=== PATIENT | female | born 1950 | race Caucasian/White ===

== ENCOUNTER 2017-06-15 20:48 | Inpatient (IN) ==
[2017-06-15] MEDS ORDERED: ASPIRIN 325 MG TABLET PO STA (21:07)
[2017-06-15] MEDS ORDERED: HYDROmorphone 2 MG/1 ML VIAL IV STA (21:07)
[2017-06-15] MEDS ORDERED: ENOXAPARIN 80 MG/0.8 ML SYRINGE SUBCUT STA (21:07)
[2017-06-15] MEDS ORDERED: ONDANSETRON 4 MG/2 ML VIAL IV STA (21:07)
[2017-06-15] MEDS ORDERED: diphenhydrAMINE 50 MG/1 ML VIAL IV STA (21:08)
[2017-06-15] MEDS ORDERED: ENOXAPARIN 80 MG/0.8 ML SYRINGE SUBCUT ONE (21:13)
[2017-06-15] MEDS ORDERED: ONDANSETRON 4 MG/2 ML VIAL ONE (21:13)
[2017-06-15] MEDS ORDERED: ASPIRIN 325 MG TABLET ONE (21:13)
[2017-06-15] MEDS ORDERED: HYDROmorphone 2 MG/1 ML VIAL ONE (21:13)
[2017-06-15 21:14] LABS: Basophils % 0.3 % (0.0-0.8); Hematocrit 35.1 VOL% (35.7-47.0); Hemoglobin 12.2 GM/DL (12.0-16.0); Immature Granulocytes % 0.3 %; Immature Granulocytes Absolute 0.02 #; Lymphocytes # 2.2 10*3/uL (1.4-4.0); Lymphocytes % 28.6 % (21.3-54.2); Mean Corpuscular HGB Conc 34.8 GM/DL (32-36); Mean Corpuscular Hemoglobin 32 PG (27-34); Mean Corpuscular Volume 92.9 FL (87-102); Mean Platelet Volume 9.8 FL (9.6-12.0); Monocytes # 0.4 10*3/uL (0.11-0.8); Monocytes % 5.6 % (1.7-12.7); Neutrophils % 65.2 % (38.7-73.9); Platelet Count 239 T/CUMM (130-400); Red Blood Count 3.78 MC/CUMM (3.8-5.5); Red Cell Distribution Width 12.7 % (9.3-17.3); White Blood Count 7.7 T/CUMM (4-12)
[2017-06-15] MEDS ORDERED: diphenhydrAMINE 50 MG/1 ML VIAL ONE (21:14)
[2017-06-15] MEDS ORDERED: ALUM/MAG/SIMETH/LIDO VISC 1:1 30 ML BOTTLE PO STA (21:17)
[2017-06-15] MEDS ORDERED: NITROGLYCERIN 2% OINT 1 INCH/GM PACK TOP STA (21:20)
[2017-06-15] MEDS ORDERED: NITROGLYCERIN 2% OINT 1 INCH/GM PACK TOP ONE (21:25)
[2017-06-15] MEDS ORDERED: ALUM/MAG/SIMETH/LIDO VISC 1:1 30 ML BOTTLE PO ONE (21:25)
[2017-06-15] MEDS ORDERED: ALBUTEROL/IPRATROPIUM 3 ML NEB RESP TX STA (21:47)
[2017-06-15 21:49] LABS: Blood Urea Nitrogen 16 MG/DL (7-18); Calcium 8.6 MG/DL (8.5-10.1); Glucose 173 MG/DL (74-106); Magnesium 2.4 MG/DL (1.8-2.4); Potassium 3.1 MMOL/L (3.5-5.1); Sodium 136 MMOL/L (136-145)
[2017-06-15 21:50] LABS: Troponin I Only 0.509 NG/ML (0.00-0.045)
--- NOTE | 2017-06-15 22:07 | Emergency Department Note ---
Kolby Vásquez Brittany, am scribing for, and in the presence of, Luis Land MD 21 :14. Emery Vásquez Hans, MD, personally performed the services described in this documentation, ascribed by Jazzmine Jarrett in my presence, and it is both accurate and complete . 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 Patient states the pain radiates to her left arm and she has been weak for the past week. Patient has been being treated for sinusitis by her PCP and has been having a lot of cough and congestion. Patient was scheduled to see Dr Abel in the morning for cardiac work up but has to cancel her appt due to not feeling well. EKG being obtained upon arrival to ED. Mode of Arrival: Stretcher Limitations: No Limitations Source: Patient, RN Notes Reviewed Time Seen by Provider: 06/15/17 21:00 - History of Present Illness HPI Narrative: Patient is a 67 y/o white female presenting to the ED via EMS with c/o severe left-sided chest pain that began about an hour ago. Patient describes this pain as a crushing pressure beginning in the left-side of the chest, radiating into the left arm and shoulder. Patient denies having any associated shortness of breath, nausea, vomiting, or diaphoresis. Patient notes that she recently has been under the weather secondary to Sinusitis and Bronchitis for which she received a penicillin injection and was started on a Z-pack. She reports that she took her final dose of the Z-pack yesterday. She states that she has been having an excessive amount of coughing spells. at the bedside reports that patient has an appointment scheduled with Dr. Abel of Cardiology for routine check-up next week. states that patient has a history of going into SVTs in April of 2014. Patient had a Cardiac Catheterization [place] [address] Patrick after experiencing chest pains and palpitations, this showed no blockages. No further complaints. Date of Last Menstrual Period: HYST Allergies/Adverse Reactions: Allergies Allergy/AdvReac Type Severity Reaction Status Date / Time acetaminophen Allergy Unknown/Unable Verified 06/15/17 21:10 [From Tylenol-Codeine] to obtain adhesive Allergy Unknown/Unable Verified 06/15/17 21:10 to obtain codeine Allergy Unknown/Unable Verified 06/15/17 21:10 to obtain guaifenesin Allergy Unknown/Unable Verified 06/15/17 21:10 to obtain Hydromorphone [From Dilaudid] Allergy Unknown/Unable Verified 06/15/17 21:10 to obtain methylprednisolone Allergy Unknown/Unable Verified 06/15/17 21:10 to obtain morphine Allergy Unknown/Unable Verified 06/15/17 21:10 to obtain ondansetron Allergy Unknown/Unable Verified 06/15/17 21:10 [From Zofran (as to obtain hydrochloride)] tramadol [From Ultram] Allergy Unknown/Unable Verified 06/15/17 21:10 to obtain Review of System - Review of System 12 point system: reviewed and no additional remarkable complaints except as stated - Review of System Constitutional: Absent: chills, diaphoresis, fever Eyes: Absent: vision change Head/Ears/Nose/Throat: Absent: nasal drainage, sore throat Respiratory: Absent: respiratory distress Cardiovascular: Present: chest pain Gastrointestinal: Absent: abdominal pain, nausea, vomiting, diarrhea, constipation Genitourinary female: Absent: dysuria, frequency, urgency Musculoskeletal: Present: arm pain (left), other (left shoulder). Absent: back pain, leg pain, neck pain Skin: Absent: rash Neurological: Absent: headache Psychiatric: Absent: anxiety, depression Hematological/Lymphatic: Absent: easy bleeding, easy bruising Medical,Surgical,& Family Hx - Medical History Cardio: History of: Cardiac Dysrhythmia (SVT 04/2014) - Surgical History Cardiac Surgeries: Sugical HX of: Cardiac Catheterization (11/2014- clean) Reproductive Surgeries: Surgical HX of;: Hysterectomy - Social History Smoking Status: Never smoker Frequency of Alcohol Use: None Type of Drug Use: None Exam Vital Signs: Vital Signs Temperature 98.6 F 06/15/17 20:48 Pulse Rate 79 06/15/17 20:48 Respiratory Rate 17 06/15/17 20:48 Blood Pressure 139/70 06/15/17 20:48 O2 Sat by Pulse Oximetry 97 06/15/17 20:48 - General General appearance: alert, in distress (appears uncomfortable secondary to pain) - Head Head exam: Present: atraumatic, normocephalic, normal inspection - Eye Eye exam: Present: PERRL, EOMI - ENT ENT exam: Present: normal exam, normal oropharynx - Neck Neck exam: Present: normal inspection, full ROM, trachea midline - Chest Chest inspection: Present: normal inspection, symmetric chest wall rise. Absent : tenderness - Respiratory Respiratory exam: Present: normal lung sounds bilaterally - Cardiovascular Cardiovascular exam: Present: regular rate, normal rhythm, normal heart sounds - Abdominal Exam Abdominal exam: Present: soft, normal bowel sounds. Absent: tenderness - Extremities Exam Extremities exam: Present: normal inspection - Back Exam Back exam: Present: normal inspection - Neurological Exam Neurological exam: Present: alert, oriented X3, CN II-XII intact. Absent: motor sensory deficit - Psychiatric Psychiatric exam: Present: normal affect, normal mood - Skin Skin exam: Present: warm, dry Course Course Narrative: The patient was evaluated with ECG and labwork. She had a left bundle branch block and despite extensive searching in the medical record we were unable to find an old ECG for comparison or a diagnosis. She was treated for her chest pain with lovenox 80mg subQ, ASA, dilaudid, and zofran. She had no diaphoresis or nausea. I discussed her left bundle branch block with Dr. Carrillo who came and evaluated the patient. She will be admitted for cardiac catheterization in the AM. Results - Labs CBC & BMP: 06/15/17 21:08 06/15/17 21:08 Lab Results: I have reviewed the patients labs Labs: Laboratory Tests 06/15/17 21:08 Sodium 136 Potassium 3.1 L Chloride 102 Carbon Dioxide 24 BUN 16 Creatinine 0.80 Glucose 173 H Total Creatine Kinase 101 CK-MB (CK-2) 2.7 Troponin I 0.509 H Disposition Clinical Impression: Chest pain Case discussed with: patient, patient's family Disposition: Still a Patient Condition: Stable Instructions: Chest Pain (ED) Time of Disposition: 22:07
[2017-06-15] MEDS ORDERED: ACETAMINOPHEN 325 MG TABLET PO PRN (22:08)
[2017-06-15] MEDS ORDERED: MAGNESIUM SULF RIDER 4 GM in PREMIX 1 EACH IV PRN (22:08)
[2017-06-15] MEDS ORDERED: MAGNESIUM SULF RIDER 2 GM in PREMIX 1 EACH IV PRN (22:08)
[2017-06-15] MEDS ORDERED: POTASSIUM CHLORIDE RIDER 10 MEQ in PREMIX 1 EACH IV PRN (22:08)
[2017-06-15] MEDS ORDERED: NITROGLYCERIN SL 0.4 MG TABLET SL PRN (22:25)
--- NOTE | 2017-06-15 22:27 | History and Physical Update ---
Sedation H&P Update - History and Physical H&P was reviewed, the patient examined and there: are no changes in the patients condition since last H&P was completed. - Dictation Physical: refer to H&P completed by admitting physician - Physical Exam Mental Status: alert and oriented Heart: regular rate and rhythm Lung: clear to auscultation Abdomen: within normal limits Vitals: within normal limits - Sedation Plan for Sedation: minimal Patient Consent: Procedure disscussed with patient and patinet has consented., Risks and benefits were discussed with patient,including infection,, bleeding, injury to surrounding structures, seizure, temporary nerve, Patient understands and accepts potential risks/benefits and agrees to, proceed. ASA Class: II Airway Assessment: Class II: Soft palate, uvula, fauces visible
--- NOTE | 2017-06-15 22:30 | Cardiology History & Physical ---
Assessment and Plan - Time spent with patient Time spent with patient: Greater than 30 minutes (1) Progressive angina Status: Acute Assessment and plan: Her exertional chest pain sounds like angina. It goes away with rest. Goes to her left arm she is worried she may have significant CAD Plan/recommendations: Admit to monitored bed Serial enzymes Initial troponin is ramirez zone Lovenox Aspirin Nitropaste Beta-christian Left heart cath and possible PTCA or stent. Left heart cath and possible PTCA or stent were discussed with the patient. The risk of the procedure include but are not limited to a small risk of injury to the vessel, abnormal heart rhythm, stroke, heart attack, need for emergent surgery, contrast reaction, restenosis, infection, or . The patient voices understanding, agrees with the plan, and desires to proceed with the heart catheterization. Treat for GI cause Treat for muscle skeletal cause Treat for CAD Check lipid profile Replete potassium GI cocktail Current Visit: Yes (2) Chest pain in adult Status: Acute Current Visit: Yes (3) Anxiety Status: Acute Current Visit: Yes (4) GERD (gastroesophageal reflux disease) Status: Acute Current Visit: Yes (5) Exertional chest pain Status: Acute Current Visit: Yes (6) Bronchitis Status: Acute Current Visit: Yes History of Present Illness Chief complaint: ' i am Having more chest pain" History of present illness: Ms. Duque is a 67 year old female PCP: Dr. 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 Tk Abel, she is changing from Dr. Niles Patrick 67-year-old woman. She is having some chest pain was related bronchitis recently. However, she also relates chest pain within the last few months that comes on with exertion. He goes away with rest. It is new. It is a burning and tightness in her left chest on her left arm. He goes away with rest. And last a few minutes. Is been worrying her. She is anxious with it. Currently she has orthopnea and PND. No edema, palpitations, syncope She does have some cough wheezing and phlegm. Past medical history: SVT Cath in 2014 which showed no critical disease Generalized anxiety disorder GE reflux disease-is on Nexium Recent bronchitis- Multiple allergies Sinusitis Home Medications Medication Instructions Recorded Confirmed Type Estrogens(Conj) Tab [Premarin Tab] 0.9 mg PO DAILY 06/15/17 06/15/17 History Rizatriptan Benzoate [Maxalt] 10 mg PO PRN 06/15/17 History Allergies Allergy/AdvReac Type Severity Reaction Status Date / Time acetaminophen Allergy Unknown/Unable Verified 06/15/17 21:10 [From Tylenol-Codeine] to obtain adhesive Allergy Unknown/Unable Verified 06/15/17 21:10 to obtain codeine Allergy Unknown/Unable Verified 06/15/17 21:10 to obtain guaifenesin Allergy Unknown/Unable Verified 06/15/17 21:10 to obtain Hydromorphone [From Dilaudid] Allergy Unknown/Unable Verified 06/15/17 21:10 to obtain methylprednisolone Allergy Unknown/Unable Verified 06/15/17 21:10 to obtain morphine Allergy Unknown/Unable Verified 06/15/17 21:10 to obtain ondansetron Allergy Unknown/Unable Verified 06/15/17 21:10 [From Zofran (as to obtain hydrochloride)] tramadol [From Ultram] Allergy Unknown/Unable Verified 06/15/17 21:10 to obtain 12 point system: reviewed and no additional remarkable complaints except as stated (Review of systems is negative except for as mentioned in HPI.) Medical,Surgical,& Family Hx - Medical History Cardio: History of: Cardiac Dysrhythmia (SVT 04/2014) - Surgical History Cardiac Surgeries: Sugical HX of: Cardiac Catheterization (11/2014- clean) Reproductive Surgeries: Surgical HX of;: Hysterectomy - Social History Smoking Status: Never smoker Frequency of Alcohol Use: None Type of Drug Use: None Marital Status: Lives With:: Spouse Functional capacity: independent ambulation Cardiology Physical Exam - Constitutional Vitals: Vital Signs Temp Pulse Resp BP Pulse Ox 98.6 F 84 16 139/70 100 06/15/17 20:48 06/15/17 22:07 06/15/17 22:07 06/15/17 20:48 06/15/17 22:07 Intake and Output 06/15/17 06/15/17 06/15/17 07:59 15:59 23:59 Other: Weight 74.843 kg Patient Weight 06/15/17 23:59 Weight 74.843 kg Exam: HEENT: Pupils equal, reactive to light and accommodation Neck: NoJVD or bruit Lungs clear to auscultation Heart: Regular rhythm rate with normal S1 and S2. Apical S4 Abdomen: No hepatosplenomegaly Spine/extremities: No clubbing, cyanosis, or edema Neuro: Nonfocal Psych: No depression ; 3+ anxiety Femoral pulses are 4+. Foot pulses are 2-3+. No chest pain with pressing on her chest Has a flat affect Result/EKG - Labs CBC & BMP: 06/15/17 21:08 06/15/17 21:08 Lab Results: I have reviewed the past 24 hour labs Labs: Laboratory Results - last 24 hr 06/15/17 06/15/17 21:08 21:08 WBC 7.7 RBC 3.78 L Hgb 12.2 Hct 35.1 L MCV 92.9 MCH 32 MCHC 34.8 RDW 12.7 Plt Count 239 MPV 9.8 Neut % (Auto) 65.2 Lymph % (Auto) 28.6 [place] % (Auto) 5.6 Eos % (Auto) 0.0 Baso % (Auto) 0.3 Neut # (Auto) 5.0 Lymph # (Auto) 2.2 [place] # (Auto) 0.4 Eos # (Auto) 0.0 Baso # (Auto) 0.0 Immature Gran % 0.3 Nucleated RBC % 0.0 Immature Gran # 0.02 Nucleated RBCs # 0.00 Immature Plt Fraction 0.0 Sodium 136 Potassium 3.1 L Chloride 102 Carbon Dioxide 24 Anion Gap 13.1 BUN 16 Creatinine 0.80 GFR Calculation 77 BUN/Creatinine Ratio 20.00 Glucose 173 H Calculated Osmolality 276.0 Calcium 8.6 Magnesium 2.4 Total Creatine Kinase 101 CK-MB (CK-2) 2.7 Troponin I 0.509 H - Diagnostic Findings Procedure: Chest x-ray: report reviewed by me - EKG EKG results: interpreted by me Quality Measures - VTE Contraindication to Pharmacological VTE Prophylaxis: Already on Theraputic Agent , No Prophylaxis Needed
[2017-06-15] MEDS ORDERED: POTASSIUM CHLORIDE 20 MEQ PACK PO ONE (23:00)
[2017-06-15] MEDS: GABAPENTIN 100 MG CAPSULE PO SCH (23:50)
[2017-06-15] MEDS: PANTOPRAZOLE 40 MG TABLET PO SCH (23:50)
[2017-06-15] MEDS: CARVEDILOL 3.125 MG TABLET PO SCH (23:50)
[2017-06-15] MEDS: SERTRALINE 25 MG TABLET PO SCH (23:51)
[2017-06-15] MEDS: NITROGLYCERIN 2% OINT 1 INCH/GM PACK TOP SCH (23:51)
[2017-06-15] MEDS: clonazePAM 0.5 MG TABLET PO SCH (23:51)
[2017-06-15] MEDS: SODIUM CHLORIDE 0.9% 1,000 ML IV SCH (23:51)
[2017-06-16 00:10] LABS: Troponin I Only 1.41 NG/ML (0.00-0.045)
[2017-06-16] MEDS: ALBUTEROL/IPRATROPIUM 3 ML NEB RESP TX SCH ×5 (00:18→20:40)
[2017-06-16] MEDS ORDERED: HYDROmorphone 2 MG/1 ML VIAL IV PRN (00:19)
[2017-06-16] MEDS: hydrOXYzine HCL 25 MG TABLET PO PRN ×2 (00:52→13:20)
[2017-06-16] MEDS: NITROGLYCERIN 2% OINT 1 INCH/GM PACK TOP SCH ×3 (05:45→22:11)
[2017-06-16] MEDS ORDERED: diphenhydrAMINE CAP 25 MG CAPSULE PO ONE (06:00)
[2017-06-16] MEDS ORDERED: DIAZEPAM 5 MG TABLET PO ONE (06:00)
[2017-06-16 06:31] LABS: Calcium 8.1 MG/DL (8.5-10.1); Osmolality,Calculated 275.7 MOS/KG (273-304); Potassium 3.4 MMOL/L (3.5-5.1)
[2017-06-16 06:34] LABS: Risk Ratio 2.98; VLDL CHOLESTEROL 65.6 MG/DL
[2017-06-16 06:35] LABS: CKMB % 6.9 %
[2017-06-16 06:37] LABS: Troponin I Only 1.36 NG/ML (0.00-0.045)
[2017-06-16] MEDS: SODIUM CHLORIDE 0.9% 1,000 ML IV SCH ×2 (06:40→22:12)
--- NOTE | 2017-06-16 07:25 | Order Completion Report ---
See report scanned to EMR
--- NOTE | 2017-06-16 07:31 | XRay Report ---
Exam: XR chest 1V portable Indication: Chest pain Shortness of breath Comparison study: 05/01/2014 Findings: The heart, mediastinum and bony structures are stable from prior. There has been development of minimal perihilar interstitial prominence which may represent developing atelectasis/infiltrate/pulmonary edema. Mild elevation right hemidiaphragm is noted. Minimal basilar opacities are also new from prior. There is no pneumothorax. Impression: Development of minimal perihilar and basilar interstitial airspace opacities suspicious for pulmonary edema changes. Interstitial infectious/inflammatory infiltrates and basilar atelectasis are an alternate consideration. PROCEDURE INTERPRETED AT [facility] DEPARTMENT OF RADIOLOGY Final Report Signed by: Carlo Alvarado
[2017-06-16] MEDS: ASPIRIN CHEW 81 MG TABLET PO SCH (08:25)
[2017-06-16] MEDS: GABAPENTIN 100 MG CAPSULE PO SCH ×3 (08:25→22:10)
[2017-06-16] MEDS: CARVEDILOL 3.125 MG TABLET PO SCH ×2 (08:26→22:12)
[2017-06-16] MEDS: PANTOPRAZOLE 40 MG TABLET PO SCH ×3 (08:26→22:09)
[2017-06-16] MEDS ORDERED: LIDOCAINE 1% 20 ML VIAL ONE (09:03)
[2017-06-16] MEDS ORDERED: MIDAZOLAM 2 MG/2 ML VIAL ONE (09:04)
[2017-06-16] MEDS ORDERED: MEPERIDINE 25 MG/1 ML VIAL ONE ×2 (09:04→09:46)
--- NOTE | 2017-06-16 10:28 | Operative Note ---
Date of procedure: 06/16/17 Procedure Preformed: Left heart cath Coronary angiography Left ventriculography Angiogram of the right femoral artery--via the follow-through from the LV gram Angio-Seal of the right femoral artery-successful Surgeon / Physician: Trell Carrillo Leakage Tester: Taylor Dexter Post-op diagnosis: same (Progressive chest pain, left bundle-branch block, positive cardiac isoenzymes) Findings: Impression: No significant obstructive coronary disease-mild coronary disease 1 intramyocardial segment of the distal LAD, but does not appear to have significant bridging /narrowing with systole 20% ostial obtuse marginal and circumflex 30% narrowing of the takeoff of the PDA left circumflex Left dominant system Mild global left systolic dysfunction, LVEF 45-50%- Dyskinesis of the distal anterolateral and apical wall. Hypokinesis of the other segments, compensating for this finding--consider the possibility of broken heart syndrome/Takutsobu syndrome Moderate elevation of LVEDP, 26 mmHg Angiogram right femoral artery-via follow-through from the LV gram Angio-Seal of the right femoral artery-successful Plan/recommendations: Based on the study, the patient's chest pain does not appear to be due to fixed, obstructive coronary disease. Also she had severe, 15/10 chest pain during the procedure and has wide open arteries. It would go against her having spasm. My suspicion is that she could have had broken heart syndrome--although this may have been in the past and may or may not be related to this recent event. Although there is no history recent, a year and half ago there is a of her grandson which she is still grieving somewhat about. Also, may be just related to her bronchitis causing the enzyme rise. Lastly regarding her 15/10 chest pain during the cath, it may be esophageal related or muscle skeletal. I will give a trial of hyoscyamine 0.125 mg sublingual now and twice daily. Also, I will start Carafate. Last I will consult GI medicine and consult pulmonary medicine to help with her possible GI cause of her pain and with her bronchitis, respectively. The patient will have risk factors optimized. The patient will be on antiplatelet medications to include aspirin indefinitely. I will not start Plavix at this point because she may have an E scope may need a biopsy. Follow-up will be scheduled for Dr. Tk Abel, the physician/manager digital that she is changing to for her long-term cardiac care. She was set up to see him next week. I believe her sees him as his manager digital. Addenda: I saw the patient post-cath. the groin puncture site and distal pulse are stable. vital signs are stable and the patient will be observed closely overnight. Specimens: none sent Estimated blood loss: minimal Condition: stable Anesthesia: local, conscious sedation Disposition: floor
[2017-06-16] MEDS ORDERED: ALUM/MAG/SIMETH/LIDO VISC 1:1 30 ML BOTTLE PO ONE (11:33)
[2017-06-16 11:42] LABS: CKMB % 6.3 %
[2017-06-16 11:43] LABS: Troponin I Only 0.955 NG/ML (0.00-0.045)
--- NOTE | 2017-06-16 12:29 | Gastrointestinal Consult Note ---
Assessment and Plan (1) Chest pain Status: Acute Assessment and plan: 06/16-sudden onset of severe chest pain with radiation and diaphoresis on yesterday with cardiac workup including cardiac catheterization today without significant obstructive coronary disease found. No prior history of endoscopy or peptic ulcer disease. Daily NSAID use noted. We will plan upper endoscopy on Monday if patient remains inpatient otherwise patient can return next week as an outpatient for further workup with EGD. Plan an addendum to followed by Dr. Yoo. Current Visit: Yes History of Present Illness Chief complaint: Chest pain History of present illness: Ms. Duque is a 67 year old female who was admitted to the hospital on yesterday with sudden onset of severe left-sided chest pain. Patient states that she was in her usual state of health until yesterday afternoon when she had an onset of chest pain that radiated up into her left arm and shoulder. The pain was associated with diaphoresis however she denies any other symptoms. She does have a history of SVT however during this time felt uncertain as to if she was having an episode of this as well. Patient has a prior history of cardiac workup by Dr. Abel and was scheduled to see him next week for routine check. She also has had heart catheterization [place] [address] reynolds with no blockages seen at that time. Patient states that she began not feeling well last week with some sinus symptoms and went to an outpatient clinic. She was given a Z-Arjun and medication for cough and sent home. She states that she has been coughing quite a bit since this time however denies any fever. When patient began having chest pain last night, her called an ambulance and was transported to the hospital. On admission, patient was found to have elevated cardiac enzymes. She was taken to the Premium Note Interest Calculator Clerk this morning and underwent catheterization with no significant obstructive coronary disease seen. Patient states that she has never had upper endoscopy done in the past. She has no known prior history of ulcers. Her last colonoscopy was approximately a year ago at the endoscopic clinic with Dr. Yoo. She denies any recent weight loss, dysphagia however she does states she has had an increase in dyspepsia with belching and bloating at times as well as reflux which is not always controlled by her Prilosec. She denies any melena or hematochezia. States she has had a slight change in her bowel since taking antibiotics with loose stools. She does admit to taking 1 BC powder every day and occasionally she will take an Advil during the day. She denies any tobacco or alcohol use. Home Medications Medication Instructions Recorded Confirmed Type Estrogens(Conj) Tab [Premarin Tab] 0.9 mg PO DAILY 06/15/17 06/16/17 History Rizatriptan Benzoate [Maxalt] 10 mg PO Q2H PRN MDD 30mg/24hr 06/15/17 06/16/17 History Omeprazole [Omeprazole] 20 mg PO DAILY 06/16/17 06/16/17 History Triamterene/Hydrochlorothiazid 1 each PO DAILY 06/16/17 06/16/17 History [Triamterene-Hctz 37.5-25 mg Cp] Allergies Allergy/AdvReac Type Severity Reaction Status Date / Time acetaminophen Allergy Unknown/Unable Verified 06/15/17 21:10 [From Tylenol-Codeine] to obtain adhesive Allergy Unknown/Unable Verified 06/15/17 21:10 to obtain codeine Allergy Unknown/Unable Verified 06/15/17 21:10 to obtain guaifenesin Allergy Unknown/Unable Verified 06/15/17 21:10 to obtain Hydromorphone [From Dilaudid] Allergy Unknown/Unable Verified 06/15/17 21:10 to obtain methylprednisolone Allergy Unknown/Unable Verified 06/15/17 21:10 to obtain morphine Allergy Unknown/Unable Verified 06/15/17 21:10 to obtain ondansetron Allergy Unknown/Unable Verified 06/15/17 21:10 [From Zofran (as to obtain hydrochloride)] tramadol [From Ultram] Allergy Unknown/Unable Verified 06/15/17 21:10 to obtain Medical,Surgical,& Family Hx - Medical History Cardio: History of: Cardiac Dysrhythmia (SVT 04/2014) - Surgical History Cardiac Surgeries: Sugical HX of: Cardiac Catheterization (11/2014- clean) Reproductive Surgeries: Surgical HX of;: Hysterectomy - Social History Smoking Status: Never smoker Frequency of Alcohol Use: None Type of Drug Use: None 12 point system: reviewed and no additional remarkable complaints except as stated - Constitutional Constitutional: Present: as per HPI - EENT Eyes: Present: as per HPI Ears: Present: as per HPI Nose, mouth and throat: Present: as per HPI - Cardiovascular Cardiovascular: Present: as per HPI, chest pain at rest, diaphoresis - Respiratory Respiratory: Present: as per HPI, cough - Gastrointestinal Gastrointestinal: Present: as per HPI, diarrhea, dyspepsia, heartburn - Genitourinary Genitourinary: Present: as per HPI - Musculoskeletal Musculoskeletal: Present: as per HPI - Neurological Neurological: Present: as per HPI - Psychiatric Psychiatric: Present: as per HPI - Endocrine Endocrine: Present: as per HPI - Hematologic/Lymphatic Hematologic/Lymphatic: Present: as per HPI Exam - Constitutional Vitals: Period Temp Pulse Resp BP Sys/Landin Pulse Ox Last 24 Hr 96.9 F-98.6 F 72-98 12-22 109-156/62-73 93-100 General appearance: normal weight, no acute distress - Head Head exam: Present: normal inspection, normocephalic - Eye Eye exam: Present: other (Lids and conjunctivae are unremarkable). Absent: scleral icterus - ENT ENT exam: Present: normal exam, normal oropharynx - Neck Neck exam: Present: normal inspection - Respiratory Respiratory exam: Present: clear to auscultation bilaterally. Absent: rales, rhonchi, wheezes - Cardiovascular Cardiovascular exam: Present: regular rate and rhythm. Absent: diastolic murmur , JVD, systolic murmur - GI/Abdominal GI/Abdominal exam: Present: normal bowel sounds, soft. Absent: ascites, distended, hernia, mass, organomegaly, tenderness - Extremities Exam Extremities exam: Present: normal inspection, full ROM - Back Exam Back exam: Present: normal inspection - Neurological Exam Neurological exam: Present: alert, oriented X3 - Psychiatric Psychiatric exam: Present: normal affect, normal mood - Skin Skin exam: Present: normal color, warm, dry Results - Labs CBC & BMP: 06/15/17 21:08 06/16/17 05:26 Lab Results: I have reviewed the past 24 hour labs Quality Measures - VTE Contraindication to Pharmacological VTE Prophylaxis: High Risk of Bleeding Specialty Discharge - Follow Up or Referrals
--- NOTE | 2017-06-16 12:51 | Order Completion Report ---
See report scanned to EMR
--- NOTE | 2017-06-16 12:55 | Order Completion Report ---
See report scanned to EMR
[2017-06-16] MEDS: clonazePAM 0.5 MG TABLET PO SCH ×2 (13:24→22:09)
[2017-06-16] MEDS: CAPTOPRIL 6.25 MG TABLET PO SCH ×2 (17:07→22:10)
[2017-06-16] MEDS: HYOSCYAMINE 0.125 MG TABLET SL SCH ×2 (17:07→22:10)
[2017-06-16] MEDS: SUCRALFATE 1 GM/10 ML UDCUP PO SCH ×2 (17:09→22:09)
[2017-06-16] MEDS: ROSUVASTATIN 10 MG TABLET PO SCH (17:09)
[2017-06-16 17:29] LABS: CKMB % 7.5 %
[2017-06-16 17:31] LABS: Troponin I Only 0.872 NG/ML (0.00-0.045)
[2017-06-16] MEDS: SERTRALINE 25 MG TABLET PO SCH (22:09)
[2017-06-17] MEDS: ALBUTEROL/IPRATROPIUM 3 ML NEB RESP TX SCH ×5 (01:00→21:17)
[2017-06-17] MEDS: NITROGLYCERIN 2% OINT 1 INCH/GM PACK TOP SCH ×5 (02:10→21:35)
[2017-06-17 04:09] LABS: Basophils % 0.1 % (0.0-0.8); Hematocrit 32.8 VOL% (35.7-47.0); Hemoglobin 11.3 GM/DL (12.0-16.0); Immature Granulocytes % 0.2 %; Immature Granulocytes Absolute 0.02 #; Lymphocytes # 1.7 10*3/uL (1.4-4.0); Lymphocytes % 20.3 % (21.3-54.2); Mean Corpuscular HGB Conc 34.5 GM/DL (32-36); Mean Corpuscular Hemoglobin 32 PG (27-34); Mean Corpuscular Volume 92.9 FL (87-102); Mean Platelet Volume 10.5 FL (9.6-12.0); Monocytes # 0.3 10*3/uL (0.11-0.8); Neutrophils # 6.2 10*3/uL (1.4-7.4); Neutrophils % 75.4 % (38.7-73.9); Platelet Count 207 T/CUMM (130-400); Red Blood Count 3.53 MC/CUMM (3.8-5.5); White Blood Count 8.3 T/CUMM (4-12)
[2017-06-17 04:40] LABS: Calcium 7.7 MG/DL (8.5-10.1); Magnesium 2.1 MG/DL (1.8-2.4); Osmolality,Calculated 269.1 MOS/KG (273-304); Potassium 3.4 MMOL/L (3.5-5.1)
[2017-06-17] MEDS: SUCRALFATE 1 GM/10 ML UDCUP PO SCH ×4 (07:27→21:34)
[2017-06-17] MEDS: ROSUVASTATIN 10 MG TABLET PO SCH (09:32)
[2017-06-17] MEDS: ASPIRIN CHEW 81 MG TABLET PO SCH (09:33)
[2017-06-17] MEDS: GABAPENTIN 100 MG CAPSULE PO SCH ×3 (09:34→21:34)
[2017-06-17] MEDS: HYOSCYAMINE 0.125 MG TABLET SL SCH ×2 (09:34→21:33)
[2017-06-17] MEDS: CAPTOPRIL 6.25 MG TABLET PO SCH (09:34)
[2017-06-17] MEDS: PANTOPRAZOLE 40 MG TABLET PO SCH ×2 (09:35→21:34)
[2017-06-17] MEDS: clonazePAM 0.5 MG TABLET PO SCH ×2 (09:43→21:33)
[2017-06-17] MEDS: CARVEDILOL 3.125 MG TABLET PO SCH ×2 (09:44→16:22)
--- NOTE | 2017-06-17 09:58 | Pulmonology Consult Note ---
History of Present Illness Chief complaint: Chest pain. Cough. GERD History of present illness: Ms. Duque is a 67 year old white female who was seen along with her . I been asked to see him pulmonary consultation because of chest pain and because of an abnormal chest x-ray and a cough with wheezing. Patient's primary care physician is Dr. Huang puente This patient denies solid dysphagia. She has significant gastroesophageal reflux. The refluxes up into her throat wakes her up at night and often she is choking coughing when this happens. She says she has had cough shortness of breath for a week or 2 she thinks it started in her sinuses. She hears herself wheeze and is a large airway wheeze. He cannot characterize her sputum. The patient complains of anterior chest pain she says it often radiates down to her right arm. She has had a negative cardiac catheterization but apical hypokinesis was noted and I am not sure exactly what this is secondary to. On chest exam she has mild pectus excavatum and she has clear-cut costochondritis. This is most prominent on the left second through sixth costochondral junctions. Also is present to a lesser degree on the right in a similar distribution. The patient is also experienced some dyspnea on exertion she says she has been trying to walk some this summer and a third loop in the driveway she has anterior chest pain that radiates down her left arm. I wonder if this is muscle spasm in the face of normal cardiac catheterization. However the patient did have elevation of her troponins at 1.410 and her MB band was minimally up. The remainder the review of systems is negative Allergies. Tylenol with codeine. Dilaudid. Guaifenesin. Morphine. Methylprednisolone which she says makes her stay up all night. Zofran. Ultram. Home medicines. Dyazide. Prilosec. Maxalt. Estrogen (Premarin 0.9 mg tablet) Hospital medicines. See below. Past history. High blood pressure. Lower extremity edema. Previous venous sclerosis surgery of the lower extremities. Gastroesophageal reflux disease. Supraventricular tachycardia followed by Dr. Frey per recurrent sinusitis. Recurrent bronchitis. Hysterectomy. History of anxiety Social history. Patient is . I have seen her in the past. She does not smoke. Family history. Does not seem to be contributory. Chest x-ray. 06/15/2017. My interpretation. Heart size is normal. Luminary arteries are top normal. There is benign calcifications in both hilar areas. Steinmann was normal. There is interstitial scarring at the bases of both lungs. There may be a superimposed infiltrate. This is definitely different than chest x-rays taken several years ago. Lab. H&H 11.3/32.8 with normal indices. White count is 8375 segs and 20 lymphs. Sodium is 135, potassium 3.4, creatinine is 0.5 and BUN is 11. Highest troponin was 1.41. CPK-MB was elevated at 7.6. Cardiac catheterization 06/16/2017. Mild global left systolic dysfunction with ejection fraction of 45-50% range. Dyskinesis of the distal anterior lateral and apical wall. Hypokinesis of other segments compensated for this finding. Consider the possibility of broken heart syndrome/Takutsobu syndrome. Moderate elevation of left ventricular end-diastolic pressures at 26 mmHg. There was no significant obstructive coronary artery disease. Physical exam. Psychiatric oriented 3. Tends to fixate minutia and parlay 1 question into several more. was present. Neurologic. Cranial nerves are intact. Long track motor function was intact. Sensory exam was not done. Gait appears to be normal. Pupils hours to sclera conjunctiva eyelids are normal. Face is symmetrical. Salivary glands feel normal. Nares lips and tongue are normal. Neck. Symmetrical with no meningismus. Thyroid was not palpated Lymphatics no submandibular cervical supraclavicular or epitrochlear adenopathy Chest. Slightly kyphotic with slight pectus excavatum. Fairly significant costochondritis on the left at the costochondral junctions 2 through 6. There is a similar but less severe distribution on the right. Patient has a significant tracheal and large airway wheeze with associated congestion. I did not hear peripheral wheezes but she may not have moved in left enough air to produce this. Heart. Regular. I do not hear murmur rub or gallop Breast deferred Abdomen. Edge of the liver feels normal bowel sounds are present nontender. Lower extremities show +1 over over 4 bilateral pedal and pretibial edema extends about 75 in the distance between the ankles and tibial plateau. This is chronic in her slight overlying skin discoloration changes. Venous. Neck and upper extremities are normal chronic venous stasis over the lower extremities Arterial. Carotid upstroke is normal. I do not hear a bruit. Upper extremity pulses palpable. Posterior tibial pulses are faintly palpable bilaterally. Skin of the face and hand show no cancerous infectious lesions. Lower extremities show chronic venous stasis. No other areas of skin were examined. Musculoskeletal. Age-appropriate loss normal curvature cervical thoracic and lumbar spine. Pectus excavatum. Costochondritis. The remainder the physical exam is noncontributory Impression. 1. Gastroesophageal reflux disease with nocturnal microaspiration exacerbating or producing pulmonary problems 2. Bronchitis with bronchospasm the large airways almost certainly exacerbated by nocturnal microaspiration 3. Bibasilar interstitial scarring which may be the result of nocturnal microaspiration of gastric contents. Suspicious there may be accompanying infiltrates. 4. Decreased cardiac output without coronary artery disease. She cardiac catheterization. 5. Mild anemia 6. Tendency towards anxiety 7. Chronic venous stasis of both lower extremities. History of sclerotic venous surgery. Look for deep venous thrombophlebitis 8. See past history Plan. 1. Solu-Medrol 40 IV push every 12 hours. I have discussed this with the patient and her . She understands this may keep her up at night. 2. Singulair 10 mg daily 3. Agree with inhalation therapy with DuoNeb's 4 times daily as needed 4 would like to use something to thin sputum. Patient lists guaifenesin as allergy. I did not question her about this. 5. We discussed antireflux regimen including a food diary, elevation of head of the bed. Smaller suppers and earlier suffers. 6. Doppler venograms of the lower extremities 7. Sputum for Gram stain culture and sensitivity 8. Meropenem 500 mg IV piggyback every 8 hours 9. EPA and lateral chest x-ray in the morning. 10. See orders Home Medications Medication Instructions Recorded Confirmed Type Estrogens(Conj) Tab [Premarin Tab] 0.9 mg PO DAILY 06/15/17 06/16/17 History Rizatriptan Benzoate [Maxalt] 10 mg PO Q2H PRN MDD 30mg/24hr 06/15/17 06/16/17 History Omeprazole [Omeprazole] 20 mg PO DAILY 06/16/17 06/16/17 History Triamterene/Hydrochlorothiazid 1 each PO DAILY 06/16/17 06/16/17 History [Triamterene-Hctz 37.5-25 mg Cp] Allergies Allergy/AdvReac Type Severity Reaction Status Date / Time acetaminophen Allergy Unknown/Unable Verified 06/15/17 21:10 [From Tylenol-Codeine] to obtain adhesive Allergy Unknown/Unable Verified 06/15/17 21:10 to obtain codeine Allergy Unknown/Unable Verified 06/15/17 21:10 to obtain guaifenesin Allergy Unknown/Unable Verified 06/15/17 21:10 to obtain Hydromorphone [From Dilaudid] Allergy Unknown/Unable Verified 06/15/17 21:10 to obtain methylprednisolone Allergy Unknown/Unable Verified 06/15/17 21:10 to obtain morphine Allergy Unknown/Unable Verified 06/15/17 21:10 to obtain ondansetron Allergy Unknown/Unable Verified 06/15/17 21:10 [From Zofran (as to obtain hydrochloride)] tramadol [From Ultram] Allergy Unknown/Unable Verified 06/15/17 21:10 to obtain Exam (Pulmonay) H&P - Constitutional Vitals: Period Temp Pulse Resp BP Sys/Landin Pulse Ox Last 24 Hr 97.0 F-98.1 F 79-99 16-22 101-117/54-70 91-971 Medical,Surgical,& Family Hx - Medical History Cardio: History of: Cardiac Dysrhythmia (SVT 04/2014) - Surgical History Cardiac Surgeries: Sugical HX of: Cardiac Catheterization (11/2014- clean) Reproductive Surgeries: Surgical HX of;: Hysterectomy - Social History Smoking Status: Never smoker Frequency of Alcohol Use: None Type of Drug Use: None Results - Labs CBC & BMP: 06/17/17 03:16 06/17/17 03:16 Quality Measures - VTE Contraindication to Pharmacological VTE Prophylaxis: High Risk of Bleeding Specialty Discharge - Follow Up or Referrals
[2017-06-17] MEDS: methylPREDNISolone SOD SUC 40 MG/1 ML VIAL IV SCH ×2 (11:38→21:34)
[2017-06-17] MEDS: MONTELUKAST 10 MG TABLET PO SCH (11:38)
[2017-06-17] MEDS: MEROPENEM 500 MG in SODIUM CHLORIDE 0.9% 50 ML IV SCH ×2 (11:39→18:37)
--- NOTE | 2017-06-17 11:54 | Ultrasound Report ---
History: Lower extremity edema Date: 06/17/2017 Study: Bilateral lower extremity color-flow venous Doppler study Comparison exam: July 23, 2013 Color Doppler, wave form analysis, and compression analysis of the deep veins of both lower extremities from the common femoral vein level through the popliteal vein level shows that the veins are readily compressible. There is no abnormal intraluminal material to suggest thrombus. Waveform analysis is unremarkable. Ultrasound images were captured and archived Impression: No evidence of acute DVT PROCEDURE INTERPRETED AT [facility] DEPARTMENT OF RADIOLOGY Final Report Signed by: Dr. Heide Yoo
--- NOTE | 2017-06-17 11:58 | Order Completion Report ---
See report scanned to EMR
[2017-06-17] MEDS ORDERED: POTASSIUM CHLORIDE 20 MEQ PACK PO ONE (18:32)
--- NOTE | 2017-06-17 18:37 | Cardiology Progress Note ---
Assessment and Plan (1) Progressive angina Status: Acute Assessment and plan: Her exertional chest pain sounds like angina. It goes away with rest. Goes to her left arm she is worried she may have significant CAD Plan/recommendations: Admit to monitored bed Serial enzymes Initial troponin is ramirez zone Lovenox Aspirin Nitropaste Beta-christian Left heart cath and possible PTCA or stent. Left heart cath and possible PTCA or stent were discussed with the patient. The risk of the procedure include but are not limited to a small risk of injury to the vessel, abnormal heart rhythm, stroke, heart attack, need for emergent surgery, contrast reaction, restenosis, infection, or . The patient voices understanding, agrees with the plan, and desires to proceed with the heart catheterization. Treat for GI cause Treat for muscle skeletal cause Treat for CAD Check lipid profile Replete potassium GI cocktail 06/17/17 Chest pain is better We will be for e scope on Monday Cough is being evaluated Thought to be microaspiration We will elevate head of bed Preoperative PPI Change Nghia to ARB because of cough Give some additional potassium Current Visit: Yes (2) Chest pain in adult Status: Acute Current Visit: Yes (3) Anxiety Status: Acute Current Visit: Yes (4) GERD (gastroesophageal reflux disease) Status: Acute Current Visit: Yes (5) Exertional chest pain Status: Acute Current Visit: Yes (6) Bronchitis Status: Acute Current Visit: Yes Cardiology - PN: Subj Interval history: Chest pain is much better Cough continues Monasalnicole Wilson have not helped her cough very much Exam (Progress Note) - Constitutional Vitals: Period Temp Pulse Resp BP Sys/Landin Pulse Ox Last 24 Hr 97.0 F-98.1 F 87-99 16-20 97-129/50-75 91-99 Exam: HEENT: Pupils equal, reactive to light and accommodation Neck: NoJVD or bruit Lungs clear to auscultation Heart: Regular rhythm rate with normal S1 and S2. Apical S4 Abdomen: No hepatosplenomegaly Spine/extremities: No clubbing, cyanosis, or edema Neuro: Nonfocal Psych: No depression or anxiety Result/EKG - Labs CBC & BMP: 06/17/17 03:16 06/17/17 03:16 Lab Results: I have reviewed the past 24 hour labs Labs: Laboratory Results - last 24 hr 06/17/17 06/17/17 03:16 03:16 WBC 8.3 RBC 3.53 L Hgb 11.3 L Hct 32.8 L MCV 92.9 MCH 32 MCHC 34.5 RDW 13.0 Plt Count 207 MPV 10.5 Neut % (Auto) 75.4 H Lymph % (Auto) 20.3 L R[place] % (Auto) 4.0 Eos % (Auto) 0.0 Baso % (Auto) 0.1 Neut # (Auto) 6.2 Lymph # (Auto) 1.7 [place]usk # (Auto) 0.3 Eos # (Auto) 0.0 Baso # (Auto) 0.0 Immature Gran % 0.2 Nucleated RBC % 0.0 Immature Gran # 0.02 Nucleated RBCs # 0.00 Immature Plt Fraction 0.0 Sodium 135 L Potassium 3.4 L Chloride 100 Carbon Dioxide 25 Anion Gap 13.4 BUN 11 Creatinine 0.50 L GFR Calculation 104 BUN/Creatinine Ratio 22.00 H Glucose 109 H Calculated Osmolality 269.1 L Calcium 7.7 L Magnesium 2.1 - Diagnostic Findings Procedure: Chest x-ray: report reviewed by me - EKG EKG results: interpreted by me Quality Measures - VTE Contraindication to Pharmacological VTE Prophylaxis: High Risk of Bleeding Specialty Discharge - Follow Up or Referrals
[2017-06-17] MEDS: SERTRALINE 25 MG TABLET PO SCH (21:34)
[2017-06-17] MEDS: CARVEDILOL 6.25 MG TABLET PO SCH (21:34)
[2017-06-17] MEDS: LOSARTAN 25 MG TABLET PO SCH (21:34)
[2017-06-18] MEDS: ZALEPLON 5 MG CAPSULE PO PRN ×2 (00:06→21:13)
[2017-06-18] MEDS: ALBUTEROL/IPRATROPIUM 3 ML NEB RESP TX SCH ×6 (01:40→23:00)
[2017-06-18] MEDS: MEROPENEM 500 MG in SODIUM CHLORIDE 0.9% 50 ML IV SCH ×3 (03:14→18:15)
[2017-06-18 04:09] LABS: ABG Base Excess 1.1 MMOL/L (-2.5-2.5); ABG HCO3 24.1 MMOL/L (20-26); ABG Oxygen Saturation 94.8 % (95-100); ABG PCO2 33.1 MM HG (35-48); ABG PO2 71.6 MM HG (80-95); ABG TCO2 25.1 MMOL/L (23-27); Allen Test Positive; Pt O2 Delivery Device Room Air
[2017-06-18] MEDS: NITROGLYCERIN 2% OINT 1 INCH/GM PACK TOP SCH ×4 (04:24→22:02)
[2017-06-18 04:50] LABS: Basophils % 0.1 % (0.0-0.8); Hematocrit 33.3 VOL% (35.7-47.0); Hemoglobin 11.5 GM/DL (12.0-16.0); Immature Granulocytes % 0.6 %; Immature Granulocytes Absolute 0.04 #; Lymphocytes # 0.7 10*3/uL (1.4-4.0); Lymphocytes % 9.8 % (21.3-54.2); Mean Corpuscular HGB Conc 34.5 GM/DL (32-36); Mean Corpuscular Hemoglobin 32 PG (27-34); Mean Platelet Volume 10.7 FL (9.6-12.0); Monocytes # 0.1 10*3/uL (0.11-0.8); Monocytes % 0.7 % (1.7-12.7); Neutrophils # 6.1 10*3/uL (1.4-7.4); Neutrophils % 88.8 % (38.7-73.9); Platelet Count 230 T/CUMM (130-400); Red Blood Count 3.58 MC/CUMM (3.8-5.5); Red Cell Distribution Width 13.2 % (9.3-17.3); White Blood Count 6.9 T/CUMM (4-12)
[2017-06-18 05:17] LABS: Calcium 8.4 MG/DL (8.5-10.1); Magnesium 2.5 MG/DL (1.8-2.4); Osmolality,Calculated 278.7 MOS/KG (273-304); Potassium 4.3 MMOL/L (3.5-5.1)
[2017-06-18] MEDS: SUCRALFATE 1 GM/10 ML UDCUP PO SCH ×4 (07:33→21:13)
[2017-06-18] MEDS: HYOSCYAMINE 0.125 MG TABLET SL SCH ×2 (09:46→21:13)
[2017-06-18] MEDS: LOSARTAN 25 MG TABLET PO SCH ×2 (09:46→21:13)
[2017-06-18] MEDS: ASPIRIN CHEW 81 MG TABLET PO SCH (09:46)
[2017-06-18] MEDS: CARVEDILOL 6.25 MG TABLET PO SCH ×2 (09:46→18:14)
[2017-06-18] MEDS: MONTELUKAST 10 MG TABLET PO SCH (09:48)
[2017-06-18] MEDS: ROSUVASTATIN 10 MG TABLET PO SCH (09:48)
[2017-06-18] MEDS: clonazePAM 0.5 MG TABLET PO SCH ×2 (09:51→21:13)
[2017-06-18] MEDS: PANTOPRAZOLE 40 MG TABLET PO SCH ×2 (09:53→21:14)
[2017-06-18] MEDS: GABAPENTIN 100 MG CAPSULE PO SCH ×3 (09:53→21:13)
[2017-06-18] MEDS: methylPREDNISolone SOD SUC 40 MG/1 ML VIAL IV SCH ×2 (10:51→21:57)
--- NOTE | 2017-06-18 11:25 | Order Completion Report ---
See report scanned to EMR
--- NOTE | 2017-06-18 12:02 | Pulmonology Progress Note ---
Pulmonary - PN: Subj Interval history: This is a 67-year-old white female whose is a patient of mine. I saw this patient in pulmonary consultation on 06/17/2017. My impressions were. 1. Gastroesophageal reflux disease with nocturnal microaspiration exacerbating or producing pulmonary problems 2. Bronchitis with bronchospasm the large airways almost certainly exacerbated by nocturnal microaspiration 3. Bibasilar interstitial scarring which may be the result of nocturnal microaspiration of gastric contents. Suspicious there may be accompanying infiltrates. 4. Decreased cardiac output without coronary artery disease. She cardiac catheterization. Positive troponins. 5. Mild anemia 6. Tendency towards anxiety 7. Chronic venous stasis of both lower extremities. History of sclerotic venous surgery. Look for deep venous thrombophlebitis 8. See past history 06/18/2017. Patient tolerated her medicines well but she has a lot of complaints including potassium preparation she was given last night. This causes gastroesophageal reflux along with that she had left arm pain. Today's chest x-ray is significantly better. Heart size is normal. Pulmonary arteries are top normal. There are benign calcifications of both hilar areas. The mediastinum is normal. There is some slight blunting both costophrenic angles. The interstitial markings at the posterior bases bilaterally are less prominent than I thought yesterday. Patient had bibasilar infiltrates on her most recent x-rays and these are all practical purposes resolved now. This was apparently pneumonia. There was probably bacterial superinfection. There may have been underlying changes related to nocturnal microaspiration. Previously noted tracheal large airway wheezes significantly better. ABGs on room air show pH of 7.48, PCO2 of 33.1, PO2 of 71.6 and a bicarb of 24.1. White blood cell count is 6988.8 segs. H&H 11.5/33.3. Electrolytes are normal. Creatinine is 0.6 with a BUN of 14. Patient for knee scope tomorrow morning. Physical exam. Vital signs. See below. Afebrile. Psychiatric oriented 3. Talker. Neurologic. Cranial nerves are intact long track motor functions intact gait is normal. Sensory exam was not done Face. Symmetrical. No edema of the lips or tongue Neck. No meningismus Chest. Nearly wheeze free. Previously had significant tracheal and large airway wheeze with prolonged expiration. Heart. No definite gallop Abdomen. Nontender. Positive bowel sounds Extremities. Trace of pedal and pretibial edema. Lymphatics. No submandibular cervical supraclavicular or epitrochlear adenopathy. The remainder the physical exam is negative Plan. 06/17/2017 1. Solu-Medrol 40 IV push every 12 hours. I have discussed this with the patient and her . She understands this may keep her up at night. 2. Singulair 10 mg daily 3. Agree with inhalation therapy with DuoNeb's 4 times daily as needed 4 would like to use something to thin sputum. Patient lists guaifenesin as allergy. I did not question her about this. 5. We discussed antireflux regimen including a food diary, elevation of head of the bed. Smaller suppers and earlier suffers. 6. Doppler venograms of the lower extremities 7. Sputum for Gram stain culture and sensitivity 8. Meropenem 500 mg IV piggyback every 8 hours 9. EPA and lateral chest x-ray in the morning. 10. See orders 06/18/2017 1. Continue present regimen. May have to taper low-dose steroids soon. 2. E scope. 3. Sputum for Gram stain culture and sensitivity pending 4. Cold agglutinins. Pro-calcitonin. Exam (Progress Note) - Constitutional Vitals: Period Temp Pulse Resp BP Sys/Landin Pulse Ox Last 24 Hr 97.8 F-98.6 F 67-106 15-20 105-155/60-77 94-99 Results - Labs CBC & BMP: 06/18/17 03:21 06/18/17 03:21 Specialty Discharge - Follow Up or Referrals
--- NOTE | 2017-06-18 12:05 | XRay Report ---
History: Chest pain. Abnormal chest x-ray. GERD Date: 06/18/2017 Study: Chest x-ray PA and lateral Comparison exam: June 15, 2017 The cardiac silhouette is not enlarged. There is no mediastinal mass. The pulmonary vasculature is not engorged. The bibasilar atelectasis/infiltrate on the previous study has nearly resolved. There is trace bilateral pleural effusion. There is no new or worsening process. Osseous structures are similar. Impression: Near complete resolution of the bibasilar atelectasis/infiltrate/edema since the previous study. Trace bilateral pleural effusion PROCEDURE INTERPRETED AT [facility] DEPARTMENT OF RADIOLOGY Final Report Signed by: Dr. Hiede Yoo
--- NOTE | 2017-06-18 14:55 | Cardiology Progress Note ---
Assessment and Plan (1) Progressive angina Status: Acute Assessment and plan: Her exertional chest pain sounds like angina. It goes away with rest. Goes to her left arm she is worried she may have significant CAD Plan/recommendations: Admit to monitored bed Serial enzymes Initial troponin is ramirez zone Lovenox Aspirin Nitropaste Beta-christian Left heart cath and possible PTCA or stent. Left heart cath and possible PTCA or stent were discussed with the patient. The risk of the procedure include but are not limited to a small risk of injury to the vessel, abnormal heart rhythm, stroke, heart attack, need for emergent surgery, contrast reaction, restenosis, infection, or . The patient voices understanding, agrees with the plan, and desires to proceed with the heart catheterization. Treat for GI cause Treat for muscle skeletal cause Treat for CAD Check lipid profile Replete potassium GI cocktail 06/17/17 Chest pain is better We will be for e scope on Monday Cough is being evaluated Thought to be microaspiration We will elevate head of bed Preoperative PPI Change Nghia to ARB because of cough Give some additional potassium 06/18/17 Still having some chest pain. It may be esophageal. We will be for E scope tomorrow May have esophageal spasm or esophageal stricture Patient has had a non-STEMI. The troponin is increased and decreased. Has a apical wall motion abnormality. I believe she has a broken heart syndrome, but it could be garden-variety spasm and thrombosis and resolution of the LAD She discussed that her son is manipulative, drug addict, and causes much stress and she and her 's life We will increase the sertraline to 50 mg nightly For her apical dyskinesis, she is on carvedilol and losartan. I discussed that that wall motion abnormality likely would improve over time. Dr. Tk Abel might want to recheck an echo in 4-6 months and see if it is improved I encouraged to sleep with her head of the bed elevated to lessen microaspiration of her reflux, which is probably causing her cough I discussed all this with the patient and with her . Current Visit: Yes (2) Chest pain in adult Status: Acute Current Visit: Yes (3) Anxiety Status: Acute Current Visit: Yes (4) GERD (gastroesophageal reflux disease) Problem details: Probably has microaspiration Status: Acute Current Visit: Yes (5) Exertional chest pain Status: Acute Current Visit: Yes (6) Bronchitis Status: Acute Current Visit: Yes (7) Non-STEMI (non-ST elevated myocardial infarction) Status: Acute Current Visit: Yes (8) Broken heart syndrome Status: Acute Current Visit: Yes Cardiology - PN: Subj Interval history: Mild chest pain last night. Continues to have a cough is significant. Exam (Progress Note) - Constitutional Vitals: Period Temp Pulse Resp BP Sys/Landin Pulse Ox Last 24 Hr 97.8 F-98.6 F 67-106 15-20 105-155/60-77 94-99 Exam: HEENT: Pupils equal, reactive to light and accommodation Neck: NoJVD or bruit Lungs clear to auscultation Heart: Regular rhythm rate with normal S1 and S2. Apical S4 Abdomen: No hepatosplenomegaly Spine/extremities: No clubbing, cyanosis, or edema Neuro: Nonfocal Psych: No depression or anxiety Result/EKG - Labs CBC & BMP: 06/18/17 03:21 06/18/17 03:21 Lab Results: I have reviewed the past 24 hour labs Labs: Laboratory Results - last 24 hr 06/18/17 06/18/17 06/18/17 03:21 03:21 04:00 WBC 6.9 RBC 3.58 L Hgb 11.5 L Hct 33.3 L MCV 93.0 MCH 32 MCHC 34.5 RDW 13.2 Plt Count 230 MPV 10.7 Neut % (Auto) 88.8 H Lymph % (Auto) 9.8 L [place] % (Auto) 0.7 L Eos % (Auto) 0.0 Baso % (Auto) 0.1 Neut # (Auto) 6.1 Lymph # (Auto) 0.7 L [place] # (Auto) 0.1 L Eos # (Auto) 0.0 Baso # (Auto) 0.0 Immature Gran % 0.6 Nucleated RBC % 0.0 Immature Gran # 0.04 Nucleated RBCs # 0.00 Immature Plt Fraction 0.0 ABG pH 7.480 H ABG pCO2 33.1 L ABG pO2 71.6 L ABG HCO3 24.1 ABG Total CO2 25.1 ABG O2 Saturation 94.8 L ABG Base Excess 1.1 FiO2 21.00 Sodium 138 Potassium 4.3 Chloride 105 Carbon Dioxide 24 Anion Gap 13.3 BUN 14 Creatinine 0.60 GFR Calculation 98 BUN/Creatinine Ratio 23.00 H Glucose 160 H Calculated Osmolality 278.7 Calcium 8.4 L Magnesium 2.5 H - EKG EKG results: interpreted by me Quality Measures - VTE Contraindication to Pharmacological VTE Prophylaxis: High Risk of Bleeding Specialty Discharge - Follow Up or Referrals
[2017-06-18] MEDS ORDERED: SERTRALINE 50 MG TABLET PO SCH (21:00)
[2017-06-19] MEDS: MEROPENEM 500 MG in SODIUM CHLORIDE 0.9% 50 ML IV SCH ×2 (03:15→10:31)
[2017-06-19 04:58] LABS: Basophils % 0.1 % (0.0-0.8); Hematocrit 31.9 VOL% (35.7-47.0); Hemoglobin 10.8 GM/DL (12.0-16.0); Immature Granulocytes % 0.7 %; Immature Granulocytes Absolute 0.05 #; Lymphocytes # 0.7 10*3/uL (1.4-4.0); Lymphocytes % 9.5 % (21.3-54.2); Mean Corpuscular HGB Conc 33.9 GM/DL (32-36); Mean Corpuscular Hemoglobin 32 PG (27-34); Mean Corpuscular Volume 94.9 FL (87-102); Mean Platelet Volume 10.8 FL (9.6-12.0); Monocytes # 0.1 10*3/uL (0.11-0.8); Monocytes % 1.4 % (1.7-12.7); Neutrophils # 6.4 10*3/uL (1.4-7.4); Neutrophils % 88.3 % (38.7-73.9); Platelet Count 240 T/CUMM (130-400); Red Blood Count 3.36 MC/CUMM (3.8-5.5); Red Cell Distribution Width 13.3 % (9.3-17.3); White Blood Count 7.3 T/CUMM (4-12)
[2017-06-19] MEDS: NITROGLYCERIN 2% OINT 1 INCH/GM PACK TOP SCH ×3 (05:18→18:01)
[2017-06-19 05:23] LABS: Calcium 8.3 MG/DL (8.5-10.1); Magnesium 2.7 MG/DL (1.8-2.4); Osmolality,Calculated 282.5 MOS/KG (273-304); Potassium 4.4 MMOL/L (3.5-5.1)
[2017-06-19] MEDS: ALBUTEROL/IPRATROPIUM 3 ML NEB RESP TX SCH ×3 (07:41→14:35)
[2017-06-19] MEDS ORDERED: PROPOFOL 200 MG/20 ML VIAL IV ONE (09:00)
[2017-06-19] MEDS ORDERED: LIDOCAINE 2% 5 ML VIAL ONE (09:00)
[2017-06-19] MEDS: GABAPENTIN 100 MG CAPSULE PO SCH ×2 (09:00→15:36)
[2017-06-19] MEDS: CARVEDILOL 6.25 MG TABLET PO SCH (09:39)
[2017-06-19] MEDS: PANTOPRAZOLE 40 MG TABLET PO SCH (09:39)
[2017-06-19] MEDS: LOSARTAN 25 MG TABLET PO SCH (09:39)
[2017-06-19] MEDS: clonazePAM 0.5 MG TABLET PO SCH (09:40)
[2017-06-19] MEDS: SUCRALFATE 1 GM/10 ML UDCUP PO SCH ×3 (09:41→15:35)
[2017-06-19] MEDS: methylPREDNISolone SOD SUC 40 MG/1 ML VIAL IV SCH (10:50)
--- NOTE | 2017-06-19 11:24 | Cardiology Progress Note ---
Assessment and Plan (1) Chest pain Status: Acute Assessment and plan: SEE PLAN OF CARE LISTED BELOW. Current Visit: Yes (2) Elevated troponin Status: Acute Assessment and plan: SEE PLAN OF CARE LISTED BELOW. Current Visit: Yes (3) Nonischemic cardiomyopathy Status: Acute Assessment and plan: SEE PLAN OF CARE LISTED BELOW. Current Visit: Yes (4) Bilateral lower extremity edema Status: Chronic Assessment and plan: SEE PLAN OF CARE LISTED BELOW. Current Visit: Yes (5) Hx of supraventricular tachycardia Status: Chronic Assessment and plan: SEE PLAN OF CARE LISTED BELOW. Current Visit: No (6) Anemia Status: Acute Assessment and plan: SEE PLAN OF CARE LISTED BELOW. Current Visit: Yes (7) Broken heart syndrome Status: Suspected Assessment and plan: SEE PLAN OF CARE LISTED BELOW. Current Visit: Yes (8) Bronchitis Status: Acute Assessment and plan: SEE PLAN OF CARE LISTED BELOW. Current Visit: Yes (9) GERD (gastroesophageal reflux disease) Problem details: Probably has microaspiration Status: Chronic Assessment and plan: SEE PLAN OF CARE LISTED BELOW. Current Visit: Yes Cardiology - PN: Subj Interval history: MERCANTILE REPORTER: Dr. Abel SUMMARY: Ms. Duque, 67-year-old female with history of GERD and lower extremity edema presented to [facility] June 15, 2017 with complaints of chest pain. Troponin peaked at 1.4. Patient was scheduled to see Dr. Abel for cardiac workup. However, due to progressive symptomology she decided to come to the emergency department. Heart catheterization was performed June 16, 2017. Patient was without significant obstructive coronary artery disease, only mild coronary disease was noted. 30% narrowing of the takeoff of the PDA left circumflex. 20% ostial OM and circumflex. Mild global left systolic dysfunction with LVEF calculated to be 45-50%. Based on the left heart catheterization, patient chest pain did not appear to be cardiac in nature. Coronary spasm not likely. Broken heart syndrome cannot be ruled out as patient did lose a recurrence on approximately a year and a half ago. Esophageal spasm also differential diagnosis. GI has been consulted. Plan for EGD June 19, 2017. Patient also had recent bronchitis. Bronchospasm could also be playing a role. Pulmonology has been consulted. JUNE 19, 2017: Patient continues to be followed for the following chronic, stable conditions: GERD, SVT and lower extremity edema. She is also being followed for the following more acute, unstable conditions: Chest pain, possible broken heart syndrome, cardiomyopathy and bronchitis. Patient was seen and examined in the telemetry unit today. She continues to report intermittent episodes of chest discomfort. Only lasting approximately 5 minutes. Patient is for EGD today. She is currently n.p.o. Continue Hyocsyamine for treatment of possible esophageal spasm. Continue PPI, aspirin, lipid-lowering agent and beta- blockade. I will further discuss with Dr. Membreno and await his additional recommendations. JUNE 19, 2017 REVIEW OF SYSTEMS: CARDIOVASCULAR: Reports intermittent chest discomfort. Denies heart racing/ palpitations. RESPIRATORY: Denies dyspnea, LORENZO and orthopnea. GASTROINTESTINAL: Denies abdominal pain, nausea or vomiting. IMPRESSION AND PLAN: 1. CHEST PAIN: Heart catheterization did not reveal any significant obstructive CAD. GI has been consulted and complaining for EGD today to rule out GI causes of chest pain. Continue Hyocsyamine for treatment of possible esophageal spasm. Continue PPI, aspirin, lipid-lowering agent and beta- blockade. 2. HISTORY OF GERD: Continue PPI. 3. ELEVATED TROPONIN: Troponin peaked at 1.4. LHC did not reveal any significant obstructive CAD. Dr. Carrillo does not suspect coronary spasm. Broken heart syndrome cannot be ruled out at this point. 4. BRONCHITIS, COUGH: Pulmonary following. Appreciate their recommendations. 5. MILD NONISCHEMIC CARDIOMYOPATHY: Possibly broken heart syndrome. Continue ARB, beta blockade and aspirin. Patient will need repeat echocardiogram in approximately 3 months. 6. CHRONIC LOWER EXTREMITY EDEMA: Will add low-dose Lasix. Monitor BMP closely. 7. ANEMIA: Chronicity unknown. Will monitor daily CBC. Will check stool for occult blood. 8. HISTORY OF SVT: No evidence of SVT this hospitalization. Will monitor on telemetry. Exam (Progress Note) - Constitutional Vitals: Period Temp Pulse Resp BP Sys/Landin Pulse Ox Last 24 Hr 97.6 F-98.5 F 64-97 15-20 104-131/70-75 94-98 Exam: General: Appears well with no apparent distress. Pleasant and cooperative. Appears comfortable. HEENT: PERRL, normocephalic, atraumatic. Mucous membranes moist. No jaundice noted. Conjunctiva moist and clear, sclerae anicteric Neck: No JVD/HJR, no thyromegaly or lymphadenopathy noted. No carotid bruit appreciated Cardiac: Regular rate and rhythm. No murmur rub or gallop. Lungs: Clear to auscultation without accessory muscle use to assist the respiratory pattern. Not requiring oxygen. Abdomen: Soft, bowel sounds normoactive. Nontender and nondistended. No abdominal bruit or thrill noted. No masses noted. Extremities: No clubbing, cyanosis noted. 1+ bilateral lower extremity edema. Upper extremity pulses 2+. Lower extremity pulses 2+. Capillary refill less than 3 seconds. Skin: No unusual lesions or rashes. No skin breakdown appreciated. Neuro: Awake, alert and oriented 3. Moves all extremities well without hemiparesis or paralysis. No essential tremor is appreciated. Result/EKG - Labs CBC & BMP: 06/19/17 03:44 06/19/17 03:44 Lab Results: I have reviewed the past 24 hour labs Labs: Laboratory Results - last 24 hr 06/18/17 06/19/17 06/19/17 04:00 03:44 03:44 WBC 7.3 RBC 3.36 L Hgb 10.8 L Hct 31.9 L MCV 94.9 MCH 32 MCHC 33.9 RDW 13.3 Plt Count 240 MPV 10.8 Neut % (Auto) 88.3 H Lymph % (Auto) 9.5 L Carter % (Auto) 1.4 L Eos % (Auto) 0.0 Baso % (Auto) 0.1 Neut # (Auto) 6.4 Lymph # (Auto) 0.7 L Carter # (Auto) 0.1 L Eos # (Auto) 0.0 Baso # (Auto) 0.0 Immature Gran % 0.7 Nucleated RBC % 0.0 Immature Gran # 0.05 Nucleated RBCs # 0.00 Immature Plt Fraction 0.0 Sodium 139 Potassium 4.4 Chloride 104 Carbon Dioxide 22 Anion Gap 17.4 H BUN 23 H Creatinine 0.70 GFR Calculation 91 BUN/Creatinine Ratio 32.00 H Glucose 140 H Calculated Osmolality 282.5 Calcium 8.3 L Magnesium 2.7 H Cold Agglutinin Screen Negative Quality Measures - VTE Contraindication to Pharmacological VTE Prophylaxis: High Risk of Bleeding Specialty Discharge - Follow Up or Referrals
--- NOTE | 2017-06-19 13:04 | Pulmonology Progress Note ---
Pulmonary - PN: Subj Interval history: Jose Banerjee, [facility]-, acting as scribe for Dr. Walter Wilcox This is a 67-year-old white female whose is a patient of Dr. Wilcox. We saw this patient in pulmonary consultation on 06/17/2017. At that time, our impressions were: 1. Gastroesophageal reflux disease with nocturnal microaspiration exacerbating or producing pulmonary problems 2. Bronchitis with bronchospasm the large airways almost certainly exacerbated by nocturnal microaspiration 3. Bibasilar interstitial scarring which may be the result of nocturnal microaspiration of gastric contents. Suspicious there may be accompanying infiltrates. 4. Decreased cardiac output without coronary artery disease. She cardiac catheterization. Positive troponins. 5. Mild anemia 6. Tendency towards anxiety 7. Chronic venous stasis of both lower extremities. History of sclerotic venous surgery. Look for deep venous thrombophlebitis 8. See past history 06/18/2017. Patient tolerated her medicines well but she has a lot of complaints including potassium preparation she was given last night. This causes gastroesophageal reflux along with that she had left arm pain. Today's chest x-ray is significantly better. Heart size is normal. Pulmonary arteries are top normal. There are benign calcifications of both hilar areas. The mediastinum is normal. There is some slight blunting both costophrenic angles. The interstitial markings at the posterior bases bilaterally are less prominent than I thought yesterday. Patient had bibasilar infiltrates on her most recent x-rays and these are all practical purposes resolved now. This was apparently pneumonia. There was probably bacterial superinfection. There may have been underlying changes related to nocturnal microaspiration. Previously noted tracheal large airway wheezes significantly better. ABGs on room air show pH of 7.48, PCO2 of 33.1, PO2 of 71.6 and a bicarb of 24.1. White blood cell count is 6988.8 segs. H&H 11.5/33.3. Electrolytes are normal. Creatinine is 0.6 with a BUN of 14. Patient for knee scope tomorrow morning. 06/19/2017. The patient is scheduled for upper endoscopy today by Dr. Yoo. Chest x-ray was not done today, so one has been ordered for tomorrow. Sputum Gram stain showed few gram-positive cocci in pairs, but sputum culture is growing organisms. Overall, from a pulmonary standpoint the patient is markedly improved. Medications have been reviewed. We made no changes today. Labs been reviewed. White count is 7300 with 88.3% segs; H&H 10.8/31.9; platelet count 240,000; creatinine 0.70, BUN 23, electrolytes are normal Exam (Progress Note) - Constitutional Vitals: Period Temp Pulse Resp BP Sys/Landin Pulse Ox Last 24 Hr 97.4 F-98.5 F 64-97 15-20 104-131/70-79 92-99 Exam: Chest with loose large airway congestion, but wheeze free Heart no gallop Abdomen is nontender and nondistended; bowel sounds positive 4 Extremities with nothing to suggest acute deep venous thrombophlebitis Psychiatric oriented 3 Neurologic long-term motor function is intact Plan: Follow-up EGD results when available. Repeat chest x-ray in the morning. See orders. Results - Labs CBC & BMP: 06/19/17 03:44 06/19/17 03:44 Specialty Discharge - Follow Up or Referrals Follow up with: Hussein Molina MD [Physician] - 1 Week (Follow up with Dr. Molina) Keaton Abel MD [Physician] - 1 Month (Follow-up with Dr. Abel in 1 month after 30 day event monitor completed. Patient needs 30 day event monitor ([facility]) at discharge. Follow up echo in 3 months.)
--- NOTE | 2017-06-19 13:35 | History and Physical Update ---
History and Physical Update - History and Physical H&P was reviewed, the patient examined and there: are no changes in the patients condition since last H&P was completed. - Physical Exam Mental Status: alert and oriented Heart: regular rate and rhythm Lung: clear to auscultation Abdomen: within normal limits Vitals: within normal limits
--- NOTE | 2017-06-19 13:55 | Operative Note ---
Date of procedure: 06/19/17 Pre-op diagnosis: atypical chest pain, GERD Procedure: Procedure: Esophagogastroduodenoscopy Brief clinical abstract: 67-year-old female was admitted with recent chest pain. She has had at least 2 different chest pains, one of which is exertional and the other which sounds like increased GERD symptoms. She had negative coronary arteriograms last Monday. She denies difficulty swallowing or weight loss. Indication for procedure: Atypical chest pain, GERD Endoscopic findings:[After informed consent was obtained, the patient was placed in the left lateral decubitus position. The gastroscope was inserted in the upper esophagus under direct vision with no resistance encountered. Esophageal mucosa appeared normal down the level of the distal esophagus. There were 2 longitudinal erosions 5-10 mm in length extending to the squamocolumnar junction consistent with reflux etiology. She has a small 2 cm long hiatal hernia. The endoscope was advanced in the stomach which was carefully examined including retroflexed view of the cardia and fundus with no other abnormality seen. The pyloric channel, duodenal bulb, second and third portion of the duodenum appeared normal. The endoscope was removed and patient appeared to tolerate the procedure well. Impression: #1 LA classification grade B esophagitis #2 small hiatal hernia Recommendations: Continue twice daily PPI therapy for now. Could discharge home from GI standpoint. I will sign off. Please call if needed. Anesthesia: other (tiva) Surgeon / Physician: Walter Yoo Estimated blood loss: none Specimens: none sent Condition: stable Disposition: post procedure unit Results - Labs CBC & BMP: 06/19/17 03:44 06/19/17 03:44 Discharge Plan - Discharge Medications No Action Estrogens(Conj) Tab [Premarin Tab] 0.9 mg PO DAILY Rizatriptan Benzoate [Maxalt] 10 mg PO Q2H PRN MDD 30mg/24hr PRN Reason: Migraine Headache Omeprazole [Omeprazole] 20 mg PO DAILY Triamterene/Hydrochlorothiazid [Triamterene-Hctz 37.5-25 mg Cp] 1 each PO DAILY - Follow Up or Referral - Forms/Instructions Instructions: Chest Pain (ED)
--- NOTE | 2017-06-19 14:00 | Anesthesia Post-Op ---
Anesthesia Post OP - Post Ansesthetic Evaluation Patient seen in post op: Yes Resp: within normal limits CV: within normal limits Mental: within normal limits Temp: within normal limits Prnm-[id number]: within normal limits Nausea and Vomiting: within normal limits Pain: within normal limits
[2017-06-19 14:16] VITALS: BP 103/58
[2017-06-19] MEDS ORDERED: clonazePAM 0.5 MG TABLET PO PRN (15:24)
[2017-06-19] MEDS ORDERED: BENZONATATE 100 MG CAPSULE PO PRN (15:24)
[2017-06-19] MEDS: ROSUVASTATIN 10 MG TABLET PO SCH (15:35)
[2017-06-19] MEDS: MONTELUKAST 10 MG TABLET PO SCH (15:37)
[2017-06-19] MEDS: HYOSCYAMINE 0.125 MG TABLET SL SCH (15:37)
[2017-06-19] MEDS: ASPIRIN CHEW 81 MG TABLET PO SCH (15:38)
[2017-06-19] MEDS: CARVEDILOL 12.5 MG TABLET PO SCH ×2 (15:39→18:01)
[2017-06-19] MEDS ORDERED: ALUMINUM/MAGNES/SIMETH MAX STR 30 ML UDCUP PO PRN (15:57)
[2017-06-19] MEDS ORDERED: FUROSEMIDE 20 MG TABLET PO SCH ×2 (16:00→16:30)
--- NOTE | 2017-06-19 17:08 | Discharge Summary ---
Toby Vásquez Vanessa, RN, am scribing for, and in the presence of, Natanael Membreno MD 15 :58. Hospital Course - Hospital Course Hospital Course: Ms. Duque is a 67-year-old female, who was previously followed by Dr. Patrick , she requested follow-up by Dr. Abel. History of recurrent chest pain, for which she had cardiac catheterization several years ago, she remembers no CAD and she was not told any cardiomyopathy. She had progressive chest discomfort, with minimal exertion, suggestive of crescendo, later unstable angina. On admission, troponin was borderline elevated. She has left bundle branch block, with unknown chronicity. LHC showed no obstructive CAD, but she has wall motion abnormality, suggestive of the cause of her cardiomyopathy. She also had epigastric discomfort, GI consult was obtained, EGD confirmed esophagitis. She is under lots of stress, due to her son, who is a drug addict and causes a lot of anxiety. Her grandson suddenly around 2 years ago, she did not seem to have fully recovered from that event either. We had a long discussion about her symptoms, association with stress. Unfortunately, some of her social issues will be very difficult to control, she understands that she will need to work on that. Her seems to be very supportive. We will use the highest dose tolerated beta-christian, her blood pressure is borderline low. -Continue Coreg, Imdur for chest pain, NICM -High-dose PPI, Maalox for esophagitis, epigastric discomfort. FU with GI if not improving -Anxiety. We will use short-term Klonopin as needed. She may need psychiatric evaluation, if the anxiety is not improving -She remained hemodynamically stable, the chest pain improved, there was no significant arrhythmia. -She has cardiomyopathy, nonischemic, suggestive of Tako-Tsubo origin. Left bundle branch block. 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 -She has nonobstructive CAD, continue low-dose Crestor. -She also has history of PSVT, Valsalva was less effective recently. If remains refractory to medical management, EP study/ablation as an option. Set up with a 30 day event recorder. -Continue Lasix 20 mg twice daily, with potassium supplementation. Recheck BMP/ magnesium in 1 week. -We will continue antibiotics, per pulmonary recommendations. -Follow-up with Dr. Abel in 1 month Diagnosis - Discharge Diagnosis (1) Broken heart syndrome Status: Suspected (2) Nonischemic cardiomyopathy Status: Acute (3) Hx of supraventricular tachycardia Status: Chronic Specialty Discharge - Follow Up or Referrals Follow up with: Hussein Molina MD [Physician] - 1 Week (Follow up with Dr. Molina) Keaton Abel MD [Physician] - 1 Month (Follow-up with Dr. Abel in 1 month after 30 day event monitor completed. Patient needs 30 day event monitor ([facility]) at discharge. Follow up echo in 3 months.) Discharge Plan - Discharge Data Disposition: Disch To Home/Self Care Condition at Discharge: Stable Discharge Diet: heart healthy, low fat, low cholesterol Activity: resume usual activities as tolerated, other Weight Bearing at Discharge: full weight bearing Driving: not until seen by doctor Contact your physician if you experience:: fever over 101, Difficulty voiding, Redness or swelling, Nausea/Vomiting, Shortness of breath, Bleeding - Discharge Medications New Benzonatate [Tessalon] 100 mg PO BID PRN #30 capsule PRN Reason: Cough Carvedilol [Coreg] 12.5 mg PO BID W/MEALS #60 tablet Gabapentin Cap/Tab [Neurontin Cap/Tab] 100 mg PO TID #90 capsule Hyoscyamine Tab [Levsin Tab] 0.125 mg SL BID #60 tablet Levofloxacin Tab [Levaquin Tab] 250 mg PO DAILY #10 tablet Losartan [Cozaar] 25 mg PO DAILY #30 tablet Montelukast Tab [Singulair Tab] 10 mg PO DAILY #30 tablet Nitroglycerin Sl Tab [Nitrostat] 0.4 mg SL Q5M PRN #30 tablet PRN Reason: Chest Pain Potassium Chloride Cap/Tab [K Dur] 20 meq PO DAILY #30 tablet Rosuvastatin [Crestor] 5 mg PO DAILY #30 tablet clonazePAM TAB [KlonoPIN] 0.5 mg PO BID PRN #60 tablet PRN Reason: Anxiety hydrOXYzine HCL TAB [Atarax Tab] 25 mg PO Q4H PRN #90 tablet PRN Reason: Itching Aspirin Chew Tab 81 mg PO DAILY #30 tablet Furosemide Tab [Lasix Tab] 20 mg PO BID DIURETIC #60 tablet Isosorbide Mononitrate [Imdur] 30 mg PO DAILY #30 tablet Pantoprazole Tab [Protonix Tab] 40 mg PO BID #60 tablet No Action Estrogens(Conj) Tab [Premarin Tab] 0.9 mg PO DAILY Rizatriptan Benzoate [Maxalt] 10 mg PO Q2H PRN MDD 30mg/24hr PRN Reason: Migraine Headache Omeprazole [Omeprazole] 20 mg PO DAILY Triamterene/Hydrochlorothiazid [Triamterene-Hctz 37.5-25 mg Cp] 1 each PO DAILY - Follow Up or Referral Follow Up: Hussein Molina MD [Physician] - 1 Week (Follow up with Dr. Molina) Keaton Abel MD [Physician] - 1 Month (Follow-up with Dr. Abel in 1 month after 30 day event monitor completed. Patient needs 30 day event monitor ([facility]) at discharge. Follow up echo in 3 months. Check BMP/Mg in 1 week) - Forms/Instructions Instructions: Chest Pain (ED) Exam - Constitutional Vitals: Period Temp Pulse Resp BP Sys/Landin Pulse Ox Last 24 Hr 97.4 F-98.5 F 64-97 15-20 99-131/58-79 92-99 General appearance: normal weight, over weight - Head Head exam: Present: normal inspection. Absent: contusion - Eye Eye exam: Absent: periorbital swelling, laceration to eyelids Pupils: Absent: dilated - ENT ENT exam: Present: normal external ear exam - Neck Neck exam: Present: normal inspection - Respiratory Respiratory exam: Present: clear to auscultation bilaterally. Absent: chest wall tenderness - Cardiovascular Cardiovascular exam: Present: regular rate and rhythm. Absent: irregular rhythm , systolic murmur, tachycardia - GI/Abdominal GI/Abdominal exam: Present: normal bowel sounds. Absent: distended - Extremities Exam Extremities exam: Present: normal inspection, normal capillary refill. Absent: edema - Back Exam Back exam: Present: normal inspection - Neurological Exam Neurological exam: Present: alert, oriented X3 - Psychiatric Psychiatric exam: Present: normal affect, normal mood - Skin Skin exam: Present: normal color, warm. Absent: cyanosis Discharge Results Procedures and tests throughout hospitalization: Pending Orders 06/18/17 04:00 Procalcitonin, S Stat 06/18/17 13:02 Sputum Culture and Gram Stain Stat 06/19/17 12:01 Occult Blood, Stool Routine 06/19/17 13:59 D-Dimer Routine 06/20/17 04:00 XR chest 2V IN AM BMP w/ Mg [Basic Metabolic Panel w/Mg] IN AM CBC [Comp Blood Count Auto Diff] IN AM 06/21/17 04:00 BMP w/ Mg [Basic Metabolic Panel w/Mg] IN AM CBC [Comp Blood Count Auto Diff] IN AM 06/22/17 04:00 BMP w/ Mg [Basic Metabolic Panel w/Mg] IN AM CBC [Comp Blood Count Auto Diff] IN AM 06/23/17 04:00 BMP w/ Mg [Basic Metabolic Panel w/Mg] IN AM CBC [Comp Blood Count Auto Diff] IN AM Labs on day of discharge: Labs from last 24 hours 06/19/17 06/19/17 06/18/17 03:44 03:44 04:00 WBC 7.3 RBC 3.36 L Hgb 10.8 L Hct 31.9 L MCV 94.9 MCH 32 MCHC 33.9 RDW 13.3 Plt Count 240 MPV 10.8 Neut % (Auto) 88.3 H Lymph % (Auto) 9.5 L Craig % (Auto) 1.4 L Eos % (Auto) 0.0 Baso % (Auto) 0.1 Neut # (Auto) 6.4 Lymph # (Auto) 0.7 L Craig # (Auto) 0.1 L Eos # (Auto) 0.0 Baso # (Auto) 0.0 Immature Gran % 0.7 Nucleated RBC % 0.0 Immature Gran # 0.05 Nucleated RBCs # 0.00 Immature Plt Fraction 0.0 Sodium 139 Potassium 4.4 Chloride 104 Carbon Dioxide 22 Anion Gap 17.4 H BUN 23 H Creatinine 0.70 GFR Calculation 91 BUN/Creatinine Ratio 32.00 H Glucose 140 H Calculated Osmolality 282.5 Calcium 8.3 L Magnesium 2.7 H Cold Agglutinin Screen Negative Preliminary micro results at discharge 06/18/17 13:02 Sputum Culture - Preliminary Sputum Normal Stephanie at 24 hours - Imaging and Cardiology Cardiology Procedure: image reviewed by me, report reviewed by me DS: Provider Consults: 06/16/17 11:29 Consult to Physician [CONS] Routine Comment: Or whoever on-call for GI Consulting Provider: Walter Yoo Consulting Provider Notified: No When should Consulting Provider be notified: Now Consult Notification Comment: Patient with chest pain, positive enzymes, cath revealed no critical disease but some damage. May have had spasm or thrombus. She is having ongoing chest pain with wide open arteries. Maybe it is esophageal spasm or an esophageal ulcer. Please evaluate and treat. Thank you. 06/16/17 11:30 Consult to Physician [CONS] Routine Comment: Or whoever is on-call for pulmonary medicine Consulting Provider: David Singh Consulting Provider Notified: No When should Consulting Provider be notified: Now Consult Notification Comment: 67-year-old woman with anxiety, a small MN due to spasm or thrombosis, possible esophageal disease, who has severe bronchitis. . She is coughing severely She also has history of reflux. Maybe there is some aspiration. Maybe she needs steroids. Please DX an Rx. 06/18/17 14:46 Consult to Case Mgmt/Social Srvs [CONS] Routine Reason for Case Mgmt/Social Srvs: Other Consult Comment: See if patient meets criteria for inpatient. Had a non- STEMI Expected date of discharge: 06/19/17 Temi Vásquez Attila, MD, personally performed the services described in this documentation, ascribed by Ngozi Luis RN in my presence, and it is both accurate and complete [id number] .
[2017-06-20] MEDS ORDERED: LEVOFLOXACIN 250 MG TABLET PO SCH (09:00)
[2017-06-20] MEDS ORDERED: POTASSIUM CHLORIDE 20 MEQ TABLET PO SCH (09:00)
[2017-06-20] MEDS ORDERED: LOSARTAN 25 MG TABLET PO SCH (09:00)
[2017-06-20] MEDS ORDERED: ISOSORBIDE MONONITRATE 30 MG TABLET PO SCH (09:00)
== END 2017-06-19 17:55 | disposition home or self-care (01) | DRG 280 ==
LOC: EDBD → EDUNIT# → N.ED 20:48 → N.EDINP 20:48 → N.TELEN 22:39
PROVIDERS: ADMIT Internal Medicine Cardiovascular Disease; ATTEND Internal Medicine Cardiovascular Disease
PROC: CLCCHCL (ICD-10-PCS; 2017-06-16 11:15)

== ENCOUNTER 2022-02-10 05:38 | Observation (INO) ==
[2022-02-10] MEDS ORDERED: DILTIAZEM 25 MG/5 ML VIAL IV STA (05:51)
[2022-02-10] MEDS ORDERED: fentaNYL 100 MCG/2 ML VIAL IV STA ×3 (05:51→08:44)
[2022-02-10] MEDS ORDERED: PROMETHAZINE 25 MG/1 ML VIAL IM STA (05:51)
[2022-02-10] MEDS ORDERED: NITROGLYCERIN 2% OINT 1 INCH/GM PACK TOP STA (05:51)
[2022-02-10] MEDS ORDERED: ASPIRIN 325 MG TABLET PO STA (05:51)
[2022-02-10 06:02] LABS: Basophils % 0.4 % (0.0-0.8); Eosinophils % 0.2 % (0.00-10.9); Hematocrit 34.5 VOL% (35.7-47.0); Hemoglobin 11.5 GM/DL (12.0-16.0); Immature Granulocytes % 0.2 %; Immature Granulocytes Absolute 0.01 #; Lymphocytes # 2.4 10*3/uL (1.4-4.0); Mean Corpuscular HGB Conc 33.3 GM/DL (32-36); Mean Corpuscular Volume 99.7 FL (87-102); Mean Platelet Volume 11.1 FL (9.6-12.0); Monocytes # 0.5 10*3/uL (0.11-0.8); Monocytes % 9.2 % (1.7-12.7); Platelet Count 179 T/CUMM (130-400); Red Blood Count 3.46 MC/CUMM (3.8-5.5); Red Cell Distribution Width 13.1 % (9.3-17.3); White Blood Count 5.1 T/CUMM (4-12)
[2022-02-10 06:08] LABS: INR 0.9; PT Patient Result 9.8 SECS (10.5-12.0)
[2022-02-10 06:14] LABS: Albumin 3.7 G/DL (3.4-5.0); Bilirubin,Total 0.4 MG/DL (0.20-1.00); Calcium 9.6 MG/DL (8.5-10.1); Osmolality,Calculated 278.7 MOS/KG (273-304); Potassium 3.4 MMOL/L (3.5-5.1)
[2022-02-10] MEDS ORDERED: SODIUM CHLORIDE 0.9% 500 ML IV STA (06:16)
[2022-02-10] MEDS: DILTIAZEM INJ 100 MG in SODIUM CHLORIDE 0.9% 100 ML IV SCH (06:19)
[2022-02-10] MEDS ORDERED: POTASSIUM CHLORIDE 20 MEQ TABLET PO STA (07:40)
[2022-02-10] MEDS ORDERED: DOCUSATE SODIUM 100 MG CAPSULE PO PRN (09:32)
[2022-02-10] MEDS ORDERED: MAGNESIUM SULF RIDER 2 GM/50 ML PREMIX IV PRN (09:32)
[2022-02-10] MEDS ORDERED: ZALEPLON 5 MG CAPSULE PO PRN (09:32)
[2022-02-10] MEDS ORDERED: PROMETHAZINE 25 MG TABLET PO PRN (09:32)
[2022-02-10] MEDS ORDERED: POTASSIUM CHLORIDE 20 MEQ TABLET PO PRN (09:32)
[2022-02-10] MEDS ORDERED: diphenhydrAMINE CAP 25 MG CAPSULE PO PRN (09:32)
[2022-02-10] MEDS ORDERED: ALUMINUM/MAGNES/SIMETH MAX STR 30 ML UDCUP PO PRN (09:32)
[2022-02-10] MEDS ORDERED: MAGNESIUM SULF RIDER 4 GM/100 ML PREMIX IV PRN (09:32)
[2022-02-10] MEDS ORDERED: NITROGLYCERIN SL 0.4 MG TABLET SL PRN (09:56)
[2022-02-10] MEDS ORDERED: RIZATRIPTAN 10 MG PO PRN (09:56)
[2022-02-10] MEDS ORDERED: FLECAINIDE 50 MG TABLET PO SCH (10:00)
[2022-02-10 11:03] LABS: Arterial Base Excess iSTAT -1 MMOL/L (-2.5-2.5); Arterial Bicarbonate iSTAT 22.7 MMOL/L (20-26); Arterial O2 Saturation iSTAT 97 % (95-100); Arterial PCO2 iSTAT 35 MM HG (35-48); Arterial PO2 iSTAT 90 MM HG (80-95); Arterial Total CO2 iSTAT 24 MMO/L (23-27); Arterial pH iSTAT 7.422 (7.35-7.45)
[2022-02-10] MEDS: ENOXAPARIN 80 MG/0.8 ML SYRINGE SUBCUT SCH ×2 (11:50→22:36)
[2022-02-10] MEDS: SODIUM CHLORIDE 0.9% 1,000 ML IV SCH (11:50)
[2022-02-10] MEDS: METOPROLOL TARTRATE 25 MG TABLET PO SCH ×2 (11:50→21:08)
[2022-02-10] MEDS: ACETAMINOPHEN 325 MG TABLET PO PRN ×2 (11:51→21:09)
[2022-02-10] MEDS ORDERED: FAMOTIDINE 20 MG TABLET PO SCH (21:00)
[2022-02-10] MEDS ORDERED: ROSUVASTATIN 10 MG TABLET PO SCH (21:00)
[2022-02-10] MEDS: SACUBITRIL/VALSARTAN 49-51 MG TABLET PO SCH (21:08)
[2022-02-10] MEDS: PANTOPRAZOLE 40 MG TABLET PO SCH (21:08)
[2022-02-11 05:38] LABS: Basophils % 0.2 % (0.0-0.8); Hematocrit 30.1 VOL% (35.7-47.0); Hemoglobin 9.9 GM/DL (12.0-16.0); Immature Granulocytes % 0.2 %; Immature Granulocytes Absolute 0.01 #; Lymphocytes # 2.2 10*3/uL (1.4-4.0); Lymphocytes % 44.9 % (21.3-54.2); Mean Corpuscular HGB Conc 32.9 GM/DL (32-36); Mean Platelet Volume 10.2 FL (9.6-12.0); Monocytes # 0.3 10*3/uL (0.11-0.8); Monocytes % 6.8 % (1.7-12.7); Neutrophils % 47.9 % (38.7-73.9); Platelet Count 196 T/CUMM (130-400); Red Blood Count 2.95 MC/CUMM (3.8-5.5); Red Cell Distribution Width 13.2 % (9.3-17.3)
[2022-02-11 06:04] LABS: Bilirubin,Total 0.4 MG/DL (0.20-1.00); Calcium 9.1 MG/DL (8.5-10.1); Osmolality,Calculated 282.3 MOS/KG (273-304); Potassium 3.8 MMOL/L (3.5-5.1); Total Protein 6.3 G/DL (6.4-8.2)
[2022-02-11] MEDS: DILTIAZEM INJ 100 MG in SODIUM CHLORIDE 0.9% 100 ML IV SCH (06:08)
[2022-02-11] MEDS: SODIUM CHLORIDE 0.9% 1,000 ML IV SCH (06:08)
[2022-02-11] MEDS: ACETAMINOPHEN 325 MG TABLET PO PRN (07:31)
[2022-02-11] MEDS ORDERED: NON-FORMULARY MEDICATION (Ascorbic Acid (Vitamin C) [Vitamin C] 1,000 mg Tablet) PO SCH (09:00)
[2022-02-11] MEDS ORDERED: CHOLECALCIFEROL 5,000 UNIT TABLET PO SCH (09:00)
[2022-02-11] MEDS: PANTOPRAZOLE 40 MG TABLET PO SCH (09:54)
[2022-02-11] MEDS: METOPROLOL TARTRATE 25 MG TABLET PO SCH (09:54)
[2022-02-11] MEDS: SACUBITRIL/VALSARTAN 49-51 MG TABLET PO SCH (09:54)
[2022-02-11] MEDS: ENOXAPARIN 80 MG/0.8 ML SYRINGE SUBCUT SCH (09:55)
[2022-02-11 12:33] VITALS: BP 92/44
[2022-02-11] MEDS ORDERED: APIXABAN 5 MG TABLET PO SCH (21:00)
== END 2022-02-11 13:20 | disposition home or self-care (01) ==
LOC: EDBD → EDUNIT# → N.ED 05:38 → N.EDINP 05:38 → N.TELES 23:24
PROVIDERS: ADMIT Internal Medicine Interventional Cardiology; ATTEND Internal Medicine Interventional Cardiology